=== PATIENT | male | born 1975 | race Caucasian/White ===

== ENCOUNTER 2019-05-05 05:56 | Day surgery (SDC) | payer MEDICARE, MEDICAID ==
[2019-04-30 09:44] LABS: BASOPHILS # (AUTO) 0.1 X10'3 (0-0.2); BASOPHILS % (AUTO) 0.6 % (0-1); EOSINOPHILS % (AUTO) 0 % (0-6); LYMPHOCYTES # (AUTO) 1.2 X10'3 (1.1-4.8); LYMPHOCYTES % (AUTO) 7.5 % (21-51); MEAN CORPUSCULAR HEMOGLOBIN 29.4 PG (27.0-31.0); MEAN CORPUSCULAR HGB CONC 33.9 g/dL (33.0-36.5); MEAN CORPUSCULAR VOLUME 86.7 FL (78-98); MONOCYTES # (AUTO) 0.9 X10'3 (0-0.9); MONOCYTES % (AUTO) 6.1 % (2-12); NEUTROPHILS # (AUTO) 13.3 X10'3 (1.8-7.7); NEUTROPHILS % (AUTO) 85.8 % (42-75); PRE OP HEMATOCRIT 49.5 % (42.0-52.0); PRE OP HEMOGLOBIN 16.8 g/dL (14.0-17.9); PRE OP PLATELET COUNT 249 X10'3 (140-440); RED BLOOD COUNT 5.71 X10'6 (4.70-6.10); RED CELL DISTRIBUTION WIDTH 16.4 % (11.5-14.5)
[2019-04-30 09:58] LABS: PRE OP INR 1.1 INR; PRE OP PROTIME 10.9 SECONDS (9.0-12.0)
[2019-04-30 10:01] LABS: ALBUMIN 4.1 G/DL (3.4-5.0); ALBUMIN/GLOBULIN RATIO 1.1 (1.1-1.5); ALKALINE PHOSPHATASE 112 IU/L (46-116); BLOOD UREA NITROGEN 14 MG/DL (7-18); BUN/CREATININE RATIO 11.3 (5.4-32.0); CALCIUM 8.9 MG/DL (8.5-10.1); CHLORIDE 100 MMOL/L (99-107); CREATININE 1.24 MG/DL (0.60-1.10); PRE OP ANION GAP 11 (8-16); PRE OP BILIRUB, TOTAL 0.5 MG/DL (0.0-1.0); PRE OP POTASSIUM 4.1 MMOL/L (3.4-5.1); PRE OP SODIUM 137 MMOL/L (135-145); TOTAL CARBON DIOXIDE 26.4 MMOL/L (24-32); eGFR 63 ML/MIN
[2019-04-30 10:06] LABS: PRE OP GLUCOSE 388 MG/DL (70-104)
[2019-04-30 10:07] LABS: PRE OP ALT 87 U/L (30-65)
[2019-04-30 10:09] LABS: PRE OP AST 13 U/L (10-37)
[2019-04-30 10:31] LABS: HEMOGLOBIN A1C 8.2 % (4.5-6.2)
[~2019-05-05] VITALS: Ht 180.3 cm; Wt 124.5 kg
[2019-05-05] VITALS (9 sets, daily range): BP systolic 140–157; BP diastolic 80–97
[~2019-05-05 05:56] MED LIST: ATOR80TA PO; BACL10TA PO; DAPA5TAB PO; DOCUMENT DATE & TIME OF BETA-BLOCKER PO ONE; DULA1.5P SQ; FAMO-128 PO; HYDR-4383 PO; HYDR42CR3 TOP; LISI40TA4 PO; MONT10TA21 PO; OMEP20TA5 PO; PARO30TA4 PO; PROP20TA6 PO; albuterol 2.5 MG/3 ML nebule NEB ONE; famotidine 10mg tablet PO ONE; ringers solution, lacted 1,000 ML IV SCH
[2019-05-05] MEDS ORDERED: ringers solution, lacted 1,000 ML IV SCH (08:11)
[2019-05-05] MEDS ORDERED: morphine 4 MG/ML inj SYRINge IV PRN ×2 (08:15)
[2019-05-05] MEDS ORDERED: meperidine/PF 25mg/ml syringe IV PRN ×3 (08:15)
[2019-05-05] MEDS ORDERED: ondansetron/PF 4mg/2ml inj IV PRN (08:15)
[2019-05-05] MEDS ORDERED: proCHLORperazine 10 MG/2 ml inj IV PRN (08:15)
[2019-05-05] MEDS ORDERED: oxymetazoline 15 ML nasal spray NS ONE (08:54)
[2019-05-05] MEDS ORDERED: mupirocin 2% ointment 22GM ONE ×2 (08:54→09:16)
[2019-05-05] MEDS ORDERED: cocaine 4% topical solution 4ml bottle ONE (08:54)
[2019-05-05] MEDS ORDERED: bupivacaine 0.25%/epinephrine 1:200,000 inj (contains preserv. MDV) ONE (09:00)
[2019-05-05] MEDS ORDERED: sevoflurane 250ml liquid IH ONE (09:10)
[2019-05-05] MEDS ORDERED: rocuronium 10mg/ml inj IV ONE (09:10)
[2019-05-05] MEDS ORDERED: dexamethasone sod phosphate 10mg/ml inj ONE (09:10)
[2019-05-05] MEDS ORDERED: neostigmine methylsulfate 1 MG/ML 10ml vial ONE (09:10)
[2019-05-05] MEDS ORDERED: glycopyrrolate 0.2mg/ml inj ONE (09:10)
[2019-05-05] MEDS ORDERED: fentaNYL/PF 50MCG/1 ML 2ML syringe ONE ×2 (09:15→09:42)
[2019-05-05] MEDS ORDERED: midazolam 2 mg/2 ml injection ONE (09:15)
[2019-05-05] MEDS ORDERED: LIDOcaine 2% (20mg/ml) 5ml vial ONE (09:16)
[2019-05-05] MEDS ORDERED: propofol inj 20 ML IV ONE (09:16)
[2019-05-05] MEDS ORDERED: ondansetron/PF 4mg/2ml inj ONE (09:44)
[2019-05-05] MEDS ORDERED: LIDOcaine 1% W/epiNEPHrine 1:100,000 20ml vial IJ ONE (09:56)
--- NOTE | 2019-05-05 10:50 | NUR ---
Received from OR via BED, accompanied by Anesthesiologist DR WILKINS--- and report given by Anesthesiolgist. PATIENT A&OX4, DENIES PAIN, V/S WNL, NEUROVASCULAR CHECKS INTACT, 20G PIV LUE, SCD ON, COTTONOIDS TO SINUS BILAT W/ NO ACTIVE DRAINAGE OBSERVED AT THIS TIME.
[2019-05-05] MEDS ORDERED: salt irrigation nasal spray 45 ML SPRAY NS PRN (11:20)
--- NOTE | 2019-05-05 11:23 | NUR ---
COTTONOIDS REMOVED PER MD ORDER
--- NOTE | 2019-05-05 11:49 | NUR ---
SALINE AND OINTMENT APPLIED ORDERED BY
--- NOTE | 2019-05-05 12:20 | NUR ---
PATIENT A&OX4, DENIES PAIN, V/S WNL, NEUROVASCULAR CHECKS INTACT, 20G PIV LUE D/C, SCD OFF, COTTONOIDS TO SINUS BILAT W/ NO ACTIVE DRAINAGE OBSERVED AT THIS TIME. I HAVE REVIEWED D/C INSTRUCTIONS WITH PATIENT AND FAMILY AND THEY HAVE VERBALIZED UNDERSTANDING. PATIENT D/C HOME WITH ALL BELONGINGS AND FAMILY GAVE TRANSPORT HOME.
[2019-05-05] MEDS ORDERED: oxymetazoline 15 ML nasal spray NS SCH (20:00)
[2019-05-05] MEDS ORDERED: mupirocin 2% nasal ointment 1gm UD NS SCH (20:00)
== END 2019-05-05 12:20 | disposition home or self-care (01) ==
LOC: PAS 05:56
PROVIDERS: ATTEND Otolaryngology
DX: J34.2 Deviated nasal septum (principal); J34.3 Hypertrophy of nasal turbinates; G47.30 Sleep apnea, unspecified; G89.29 Other chronic pain; G43.909 Migraine, unspecified, not intractable, without status migrainosus; M19.90 Unspecified osteoarthritis, unspecified site; F43.10 Post-traumatic stress disorder, unspecified; I10 Essential (primary) hypertension; K21.9 Gastro-esophageal reflux disease without esophagitis; E11.9 Type 2 diabetes mellitus without complications; E66.01 Morbid (severe) obesity due to excess calories; Z68.38 Body mass index [BMI] 38.0-38.9, adult; Z87.891 Personal history of nicotine dependence; Z88.8 Allergy status to other drugs, medicaments and biological substances; Z88.5 Allergy status to narcotic agent; Z79.899 Other long term (current) drug therapy; Z79.01 Long term (current) use of anticoagulants
CPT/HCPCS: 30140; 30520; 36415; 80053; 82948; 83036; 85025; 85576; 85610; 85730; 93005; A6402; C9250; J1100; J2001; J2175; J2250; J2405; J2704; J2710; J3010; J7040; J7120; A4618; A7000; J3490

== ENCOUNTER 2019-06-23 13:14 | Emergency (ER) | payer MEDICARE, MEDICAID ==
[~2019-06-23] VITALS: Ht 175.3 cm; Wt 123.0 kg
[~2019-06-23 13:14] MED LIST changes: -DOCUMENT DATE & TIME OF BETA-BLOCKER PO ONE; +LIDOcaine 1% W/epiNEPHrine 1:100,000 20ml vial ONE; -albuterol 2.5 MG/3 ML nebule NEB ONE; -famotidine 10mg tablet PO ONE; -ringers solution, lacted 1,000 ML IV SCH
--- NOTE | 2019-06-23 13:27 | NUR ---
Called W/ no response [phone]
[2019-06-23 13:29] VITALS: BP 152/96
[2019-06-23] MEDS ORDERED: TETanus/Pertussis (Acell)/Diphther VAC/PF (Tdap-Adult) 0.5ml syringe IMVAC ONE (14:45)
== END 2019-06-23 15:19 | disposition home or self-care (01) ==
LOC: ER 13:15
DX: S60.452A Superficial foreign body of right middle finger, initial encounter (principal); K21.9 Gastro-esophageal reflux disease without esophagitis; F41.9 Anxiety disorder, unspecified; F32.9 Major depressive disorder, single episode, unspecified; F12.90 Cannabis use, unspecified, uncomplicated; F15.10 Other stimulant abuse, uncomplicated; Z56.0 Unemployment, unspecified; Z88.6 Allergy status to analgesic agent; Z88.5 Allergy status to narcotic agent; Z79.899 Other long term (current) drug therapy; W45.8XXA Other foreign body or object entering through skin, initial encounter; Y93.89 Activity, other specified; Y92.89 Other specified places as the place of occurrence of the external cause; Y99.8 Other external cause status
CPT/HCPCS: 64450; 90471; 90715; 99284